=== PATIENT | female | born 1945 | race Caucasian/White ===

== ENCOUNTER 2022-01-10 09:55 | Outpatient (CLI) | payer MEDICARE | END 2022-01-10 09:56 | disposition home or self-care (01) | LOC: PET 09:55 | PROVIDERS: ATTEND Psychiatry & Neurology Neurology | DX: F01.50 Vascular dementia, unspecified severity, without behavioral disturbance, psychotic disturbance, mood disturbance, and anxiety (principal); I67.82 Cerebral ischemia; G31.9 Degenerative disease of nervous system, unspecified | CPT/HCPCS: 70551; 78803; A9552 ==